=== PATIENT | female | born 1995 | race Caucasian/White ===

== ENCOUNTER 2019-03-30 16:26 | Observation (INO) ==
[2019-03-30] MEDS ORDERED: NORMAL SALINE 1,000 ML IV ONE ×2 (16:45→17:49)
[2019-03-30 16:54] LABS: Hematocrit 40.4 % (37.0-47.0); Hemoglobin 13.5 gm/dL (12.5-16.0); Mean Cell Volume 92.7 fl (78-100); Mean Corpuscular Hgb Conc 33.4 g/dl (32-36); Mean Platelet Volume 11.3 fl (8-12.5); Neutrophil # 6.8 K/mm3 (1.3-6.0); Neutrophil % 67.1 % (42-75.0); Platelet Count 233 K/mm3 (150-450); Red Blood Count 4.36 M/mm3 (4.2-5.4); Red Cell Distribution Width 12.3 % (11.5-14.0); White Blood Count 10.2 K/mm3 (4.0-10.5)
--- NOTE | 2019-03-30 17:00 | ERNOTE ---
Medical Problem HPI - Narrative Date of Service: 03/30/19 - General Chief Complaint: Drug Overdose Time Seen by Provider: 03/30/19 16:38 Source: patient Exam Limitations: clinical condition, intoxication - Immun/Allergies/Home Medications Immunizations: IMMUNIZATION HX Immunizations Up to Date Yes History of Influenza Vaccine No Hx Pneumococcal Vaccination No Allergies/Adverse Reactions: Allergies gabapentin Allergy (Severe, Verified 01/25/19 11:43) Skin Irritation Home Medications: HOME MEDICATIONS Dextroamphetamine/Amphetamine [Adderall Xr 30 mg Capsule] 50 mg PO BID 07/12/18 [Last Taken Unknown] Diazepam 5 mg PO PRN 07/12/18 [Last Taken Unknown] Tramadol HCl [Rybix Odt] 50 mg PO TID 07/12/18 [Last Taken Unknown] traZODone HCL [Trazodone HCl] 100 mg PO HS PRN 09/22/18 [Last Taken Unknown] Lisdexamfetamine Dimesylate [Vyvanse] 50 mg PO DAILY 01/25/19 [Last Taken Unknown] Ondansetron [Zofran Odt] 4 mg PO Q6H PRN #20 tab 01/25/19 [Last Taken Unknown] traMADol HCL [Ultram] 50 mg PO QID PRN #10 tab 01/25/19 [Last Taken Unknown] - History of Present History Narrative: patient arrives in ed per police with court committal for suicidal ideation, appears quite intoxication, admits to alcohol and diazpam ingestion Timing: constant Severity: moderate Modifying Factors - (Improves): Present: other - nothing Modifying Factors - (Worsens): Present: other - nothiing Review of Systems - Narrative Narrative: unable to obtain ros due to intoxication and combativeness - Review of Systems Neurological: Present: See HPI, anxiety Medical History (Updated 01/25/19 @ 13:48 by Leighton Martin DO) Hx of cardiac arrhythmia Hx of migraines Rectal prolapse Surgical History: Surgical History (Updated 07/12/18 @ 17:26 by Jyoti Wing RN) History of rectal surgery Family History: Family History (Updated 07/12/18 @ 17:27 by Jyoti Wing RN) Other No pertinent family history Social History: (Last Updated 03/30/19 @ 16:40 by Denise Cavanaugh RN) Tobacco: Smoking Status: Current every day smoker Smoking packs per day: 1 Alcohol: alcohol intake frequency: a few times a week Physical Exam - Physical Exam General Appearance: Present: moderate distress, anxious Head Exam: Present: normal inspection, no evidence of injury Eye Exam: Normal inspection: bilateral, PERRL: bilateral, EOMI: bilateral Ears, Nose, Throat: Present: normal ENT inspection, other - etoh on breath Neck: Present: normal inspection, nontender Respiratory: Present: no respiratory distress, normal breath sounds, no accessory muscle use, chest nontender, lungs clear Cardiovascular/Chest: Present: regular rate, rhythm, no murmur, normal peripheral pulses Gastrointestinal/Abdominal: Present: normal bowel sounds, nontender, nondistended, soft, no organomegaly Back Exam: Present: normal inspection, normal range of motion, no CVA tenderness, no vertebral tenderness Extremity Exam: Present: normal inspection, non-tender Neurological Exam: Present: disoriented to person, disoriented to time Skin Exam: Present: normal color, warm/dry Lymphatic Exam: Present: no adenopathy Progress - Date and Time Seen: Date and Time: 03/30/19 19:04 patient improved, discussed case cande deras, accepted for admission to observation drug overdose - Results and Orders Patient's Lab Results:: I have reviewed the patient's lab results. - Vital Signs Patient's Vital Signs:: I have reviewed the patient's vital signs. Vital Signs: Vital Signs 03/30/19 16:29 03/30/19 16:35 Pulse Rate 79 85 Respiratory Rate 14 Blood Pressure 103/68 O2 Sat by Pulse Oximetry 97 - Progress/Reassessment Chief Complaint: Drug Overdose Progress:: Improved - Transfer of Care Expected Disposition: Admit Plan - Plan Plan: to admit to observation Departure Clinical Impression: Drug overdose, intentional, Suicide attempt by benzodiazepine overdose - Departure Disposition: Short Term Hospital Inpatient Condition: Serious Referrals: SCHUYLER DE JESUS [Primary Care Provider] -
[2019-03-30 17:30] LABS: ALT 8 U/L (19-67); AST 12 U/L (0-48); Albumin * 3.6 gm/dl (3.4-5.0); Alkaline Phosphatase * 35 U/L (50-170); Anion Gap 13.8 mmol/L (6.8-13.8); Bilirubin, Total 0.1 mg/dL (0.0-1.1); Blood Urea Nitrogen 9 mg/dL (3-23); Ca. Corrected For Albumin 7.9 mg/dL (8.4-10.2); Calcium * 7.9 mg/dL (7.9-10.9); Carbon Dioxide 24.6 mmol/L (24-32.6); Chloride 113 mmol/L (97-106); Glucose * 98 mg/dL (70-110); Potassium 3.4 mmol/L (3.4-4.6); Salicylate 4.5 mg/dL (2.8-20.0); Sodium 148 mmol/L (132-142); Total Protein 6.3 gm/dL (6.2-8.2)
[2019-03-30 18:26] LABS: Urine Bilirubin Negative (NEGATIVE); Urine Blood Negative /ul (NEGATIVE); Urine Ketone Negative (NEGATIVE); Urine Nitrite Negative (NEGATIVE); Urine Protein Negative (NEGATIVE); Urine Specific Gravity <=1.005 SP.GR. (1.005-1.010); Urine Urobilinogen Normal (NORMAL)
[2019-03-30 18:38] LABS: Cocaine Ur Negative (NEGATIVE); Urine Barbiturate Negative (NEGATIVE); Urine Benzodiazepines Positive (NEGATIVE); Urine Opiates Negative (NEGATIVE); Urine PCP Negative (NEGATIVE); Urine THC Negative (NEGATIVE)
[2019-03-30 18:39] LABS: Urine Appearance Clear (CLEAR); Urine Bacteria TRACE; Urine Color Colorless; Urine RBC None Seen /hpf (0-5); Urine WBC None Seen /hpf (0-5)
[2019-03-30 20:52] LABS: Acetaminophen * 0.9 mcg/mL (10.0-30.0); Salicylate 3.3 mg/dL (2.8-20.0)
[2019-03-30] MEDS: NORMAL SALINE 1,000 ML IV PRN (21:49)
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
[2019-03-31] MEDS: NORMAL SALINE 1,000 ML IV PRN (05:46)
--- NOTE | 2019-03-31 13:03 | CONS ---
[facility] - General Date of Service: 03/31/19 Narrative: Rae is a 23 year old female with a reported history of depression and anxiety who was reportedly brought to [facility] ED 03/30/19 by law enforcement after she attempted to commit suicide by overdosing. Per Dr. Aquino's note, family contacted police and patient was placed on 48 hour hold after she told her family she was going to commit suicide and sent a picture of her holding pills. Rae states, "I was cycling since Friday and I wanted to hurt myself." When asked for elaboration regarding cycling, Torri states cycling is when she is fine one minute then is really depressed the next minute then really angry and she just keeps cycling through those moods. Rae states she has had depression for many years. She states she has attempted suicide in the past by overdosing in 2016 and she underwent inpatient psychiatric treatment at that time. Rae states she has been going to [facility] for psychiatric treatment and she last saw Roxanne Nielson approximately one month ago. Rae states she is prescribed trazodone, Valium, Adderall, Vyvanse, and buspirone and she is unsure of the doses. She states she doesn't want any medications for depression because "they mess with my serotonin in my head." Shortly after stating she wanted to hurt h erself since Friday, Rae then states she did not want to hurt herself and that she was not attempting to commit suicide. She said she sent a picture of her fiance's suboxone pills in a group message to her mom, sister, and fiance after she and her fiance were arguing. She states she did not take the suboxone pills but she did take "maybe 4 or 5" Valium 5mg tablets and drank a lot of alcohol (she reports she drank 1/2 bottle of some type of liquor). She first states she was attempting to commit suicide then states she was not attempting to commit suicide and that she does not want to be hospitalized. At times, she refuses to answer questions. She denies homicidal ideation. Source: patient, RN/MD - History of Present Illness Allergies/Adverse Reactions: Allergies gabapentin Allergy (Severe, Verified 01/25/19 11:43) Skin Irritation Home Medications: Home Medications Medication Instructions Recorded Last Taken Dextroamphetamine/Amphetamine 50 mg PO BID 07/12/18 Unknown [Adderall Xr 30 mg Capsule] Diazepam 5 mg PO TID PRN 07/12/18 Unknown Tramadol HCl [Rybix Odt] 50 mg PO TID 07/12/18 Unknown traZODone HCL [Trazodone HCl] 100 mg PO HS PRN 09/22/18 Unknown Lisdexamfetamine Dimesylate 50 mg PO DAILY 01/25/19 Unknown [Vyvanse] Ondansetron [Zofran Odt] 4 mg PO Q6H PRN #20 tab 01/25/19 Unknown traMADol HCL [Ultram] 50 mg PO QID PRN #10 tab 01/25/19 Unknown Review of Systems - Review of Systems Generalized/Overall Review: Present: No Symptoms Reported Neurological: Present: Depressed Physical Examination - Exam Vital Signs: Vital Signs - Last Taken Temp 36.6 C 03/31/19 10:00 Pulse 77 03/31/19 10:00 Resp 16 03/31/19 10:00 BP 106/63 03/31/19 10:00 Pulse Ox 98 03/31/19 10:00 O2 Oxygen Delivery Method Room Air Constitutional: Present: Alert, Oriented x3. Absent: Cooperative Neurologic: Present: alert, oriented x 3 Appearance: Present: impaired insight, other - disheveled, dressed appropriately in hospital gown Eye contact: Present: avoids eye contact, refused to answer - at times, other - guarded. Absent: cooperative, good eye contact Thoughts: Present: normal thought pattern, no apparent hallucination - Results and Findings: Narrative: Discussed findings with Dr. Aquino. Patient has poor insight and is evasive when asked about suicidal ideation/suicide attempt. Recommend placement on inpatient psychiatric unit. Lab/Microbiology results last 24 hrs: Abnormal/Pending Laboratory Last 24 HRS 03/31/19 03/31/19 03/31/19 12:20 08:34 04:30 Neutrophils # Sodium Plasma Sodium Chloride Calcium Adj for Albumin ALT Alkaline Phosphatase Acetaminophen 0.5 L 1.9 L 3.2 L U Benzodiazepines Scrn Ethyl Alcohol 03/31/19 03/30/19 03/30/19 00:30 20:35 18:20 Neutrophils # Sodium Plasma Sodium Chloride Calcium Adj for Albumin ALT Alkaline Phosphatase Acetaminophen 2.3 L 0.9 L U Benzodiazepines Scrn Positive H Ethyl Alcohol 03/30/19 03/30/19 17:05 16:43 Neutrophils # 6.8 H Sodium 148 H Plasma Sodium 148 H Chloride 113 H Calcium Adj for Albumin 7.9 L ALT 8 L Alkaline Phosphatase 35 L Acetaminophen Less than 0.2 L U Benzodiazepines Scrn Ethyl Alcohol 147.0 H - Assessments/Findings (1) Drug overdose, intentional Problem: Acute (2) Suicide attempt by benzodiazepine overdose Problem: Acute
--- NOTE | 2019-03-31 13:05 | PN ---
Subjective - Date and Time Seen Date: 03/31/19 Time: 11:00 Subjective Narrative: Patient is more alert this morning. She reports feeling mostly at her baseline, but slightly more tired. She is maintaining po intake. She denies still feeling suicidal. Objective - Review of Systems Cardiac: Denies: Chest Pain Abdominal: Denies: Vomiting Genitourinary Symptoms: Reports: No Symptoms Reported - Vitals Vitals: Last Vital Signs Temp 36.6 C 03/31/19 10:00 Pulse 77 03/31/19 10:00 Resp 16 03/31/19 10:00 BP 106/63 03/31/19 10:00 Pulse Ox 98 03/31/19 10:00 - Abnormal Lab Findings Abnormal Lab Findings: Abnormal Lab Results 03/30/19 03/30/19 03/30/19 Range/Units 16:43 17:05 18:20 Neutrophils # 6.8 H (1.3-6.0) K/mm3 Sodium 148 H (132-142) mmol/L Plasma Sodium 148 H (130-142) mmol/L Chloride 113 H (97-106) mmol/L Calcium Adj for Albumin 7.9 L (8.4-10.2) mg/dL ALT 8 L (19-67) U/L Alkaline Phosphatase 35 L (50-170) U/L Acetaminophen Less than 0.2 L (10.0-30.0) mcg/mL U Benzodiazepines Scrn Positive H (NEGATIVE) Ethyl Alcohol 147.0 H (0.0-10.0) mg/dL 03/30/19 03/31/19 03/31/19 Range/Units 20:35 00:30 04:30 Neutrophils # (1.3-6.0) K/mm3 Sodium (132-142) mmol/L Plasma Sodium (130-142) mmol/L Chloride (97-106) mmol/L Calcium Adj for Albumin (8.4-10.2) mg/dL ALT (19-67) U/L Alkaline Phosphatase (50-170) U/L Acetaminophen 0.9 L 2.3 L 3.2 L (10.0-30.0) mcg/mL U Benzodiazepines Scrn (NEGATIVE) Ethyl Alcohol (0.0-10.0) mg/dL 03/31/19 03/31/19 Range/Units 08:34 12:20 Neutrophils # (1.3-6.0) K/mm3 Sodium (132-142) mmol/L Plasma Sodium (130-142) mmol/L Chloride (97-106) mmol/L Calcium Adj for Albumin (8.4-10.2) mg/dL ALT (19-67) U/L Alkaline Phosphatase (50-170) U/L Acetaminophen 1.9 L 0.5 L (10.0-30.0) mcg/mL U Benzodiazepines Scrn (NEGATIVE) Ethyl Alcohol (0.0-10.0) mg/dL - Exam Constitutional: Present: Alert, No distress, Young Respiratory: Present: lungs clear, normal breath sounds, no respiratory distress Cardiovascular/Chest: Present: regular rate, rhythm Abdomen: Present: soft, nontender Extremity: Absent: lower extremity edema Assessment/Plan - Problems/Diagnosis (1) Drug overdose, intentional Problem: Resolved Narrative: She is alert, and able to answer questions. She denies current suicidal ideation. Psychiatry was consulted, who recommends inpatient treatment. She has cleared her overdose, and will start the process to get her accepted and transferred to an inpatient psych facility. She did not have abnormal vitals during her stay. Tylenol level zuri a bit overnight, and peaked at 3.2 at 4:30 this morning. (2) Suicide attempt by benzodiazepine overdose Problem: Acute Narrative: Will start process for transfer to inpatient facility. She took either 2 5 mg valium tablets, or 10 5 mg valium tablets and drank alcohol. Admission EtOH of 147. She received IV fluids overnight. (3) Alcohol overdose Problem: Resolved Qualifiers: Injury intent: intentional self-harm
[2019-03-31] MEDS: DEXTROAMPHETAMINE PO SCH ×2 (13:07→20:42)
[2019-03-31] MEDS: (Lisdexamfetamine Dimesylate [Vyvanse] 50 MG) PO SCH (13:07)
[2019-03-31] MEDS: AMPHETAMINE PO SCH ×2 (13:07→20:42)
[2019-04-01] MEDS: (Lisdexamfetamine Dimesylate [Vyvanse] 50 MG) PO SCH (08:59)
[2019-04-01] MEDS: AMPHETAMINE PO SCH (08:59)
[2019-04-01] MEDS: DEXTROAMPHETAMINE PO SCH (08:59)
[2019-04-01] MEDS ORDERED: NICOTINE 21 MG PATC TD SCH (09:00)
[2019-04-01 09:09] VITALS: BP 117/68
[2019-04-01] MEDS ORDERED: ZIPRASIDONE MESYLATE 20 MG VIAL IM ONE ×2 (10:00)
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
== END 2019-04-01 12:28 ==
LOC: ER 16:26 → SCU 16:26 → MS 16:26 → SCU 21:14
PROVIDERS: ADMIT Family Medicine; ATTEND Family Medicine
CPT/HCPCS: 36415; 80053; 80307; 80329; 81001; 84443; 84702; 85025; 93005; 94760; 96360; 96361; 96372; 99285; G0378; G0480